=== PATIENT | male | born 1975 | race African-American/Black ===

== ENCOUNTER 2021-01-27 18:32 | Emergency (ER) | payer MEDICARE, MEDICAID ==
[~2021-01-27] VITALS: Ht 177.8 cm; Wt 61.0 kg
[~2021-01-27 18:32] MED LIST: AMLO-187 PO; APIX2.5T PO; CARV12.511 PO; HYDR100T24 PO; LEVE500T56 PO; SEVE800T9 PO
[2021-01-27 20:40] LABS: CALCIUM 7.6 mg/dL (8.5-10.1); CREATININE 15.1 mg/dL (0.7-1.3); GFR 4.2; POTASSIUM 5.1 mmol/L (3.5-5.1)
--- NOTE | 2021-01-27 21:01 | ED.ADGEN ---
Past Medical History Past Medical History: CHF, Hypertension, Renal Disease, Seizure, Other Additional Past Medical Histor: ESRD, DIALYSIS, OSTOMY Past Surgical History: No Surgical History Additional Past Surgical Histo: COLOSTOMY, L GREAT TOE AMPUTATION, cath R CHEST, FISTULA L ARM kidney peraza Smoking Status: Current Every Day Smoker Alcohol Use: None Drug Use: None General Adult EDM: Chief Complaint: HYPERKALEMIA HPI: HPI: Patient is a 45-year-old male with known end-stage renal disease who presents to the emergency room stating that he needs clearance to have his dialysis tomorrow. Patient states that he called the dialysis center today and they told him that they did not receive paperwork from the hospital stating that he needed dialysis. He is established at this dialysis center. He sees Dr. Redman. He has no complaints at this time. His last dialysis was yesterday here in the hospital. Review of Systems: Review of Systems: Complete ROS is negative unless otherwise documented in HPI Allergies: Allergies: Allergies Coded Allergies Type Severity Reaction Last Updated Verified No Known Drug Allergies 06/14/20 No Physical Exam: PE: General: Awake, alert, NAD. Well Nourished, well hydrated. Cooperative HEENT: Atraumatic, EOMI, PERRL, airway patent, moist oral mucosa Neck: Supple, trachea midline Respiratory: CTA bilaterally, normal effort, no wheezing/crackles CV: RRR, no murmur, cap refill <2 GI: Soft, nondistended, nontender, no masses MSK: No obvious deformities Skin: Warm, dry, intact Neuro: A&O x3, speech NL, sensory and motor grossly intact, no focal deficits Psych: Normal affect, normal mood, not suicidal or homicidal Current Patient Data: Labs: Laboratory Tests Test 01/27/21 20:26 Sodium Level 137 mmol/L (136-145) Potassium Level 5.1 mmol/L (3.5-5.1) Chloride Level 102 mmol/L (98-107) Carbon Dioxide Level 24 mmol/L (21-32) Anion Gap 11 (6-14) Blood Urea Nitrogen 61 mg/dL (8-26) H Creatinine 15.1 mg/dL (0.7-1.3) H Estimated GFR (Cockcroft-Gault) 4.2 Glucose Level 109 mg/dL (70-99) H Calcium Level 7.6 mg/dL (8.5-10.1) L Laboratory Tests 01/27/21 20:26 Vital Signs: Vital Signs Date Time Temp Pulse Resp B/P (MAP) Pulse Ox O2 Delivery O2 Flow Rate FiO2 01/27/21 21:05 72 196/97 (130) 98 Room Air 01/27/21 20:17 98.1 12 98.1 EKG: EKG: [] Heart Score: C/O Chest Pain: N/A Risk Factors: Risk Factors: DM, Current or recent (<one month) smoker, HTN, HLP, family history of CAD, obesity. Risk Scores: Score 0 - 3: 2.5% MACE over next 6 weeks - Discharge Home Score 4 - 6: 20.3% MACE over next 6 weeks - Admit for Clinical Observation Score 7 - 10: 72.7% MACE over next 6 weeks - Early Invasive Strategies Radiology/Procedures: Radiology/Procedures: [] Course & Med Decision Making: Course & Med Decision Making Pertinent Labs and Imaging studies reviewed. (See chart for details) Patient is a 45-year-old male who presents to the emergency room stating that he needs clearance to have dialysis done tomorrow. It is unclear at this time exactly what he is needing. BMP is stable. EKG is unchanged. I discussed the patient with Dr. Alvarado who will call the dialysis center in the morning. Patient's test results and vitals while in the ED were fully reviewed and discussed with the patient. Patient is stable and at this time does not need admission to the hospital. We have discussed strict return precautions and the importance of following up with their Primary Care Physician. Patient stated understanding and was given an opportunity to ask any questions. Patient is in agreement with plan. Dragon Disclaimer: Dragon Disclaimer: This electronic medical record was generated, in whole or in part, using a voice recognition dictation system. Departure Departure Impression: Primary Impression: Dialysis patient Disposition: HOME / SELF CARE / HOMELESS Condition: STABLE Referrals: LO MANNING MD (PCP) Patient Instructions: Dialysis LUCRECIA ROMANO MD Jan 27, 2021 21:01
[2021-01-27 21:05] VITALS: BP 196/97
--- NOTE | 2021-01-28 02:07 | EKG ---
[facility] [address] [place] [address] Test Date: 2021-01-27 Test Time: 20:11:09 Pat Name: MIKE CHOWDARY Department: Room: Gender: M [employer] Advisor: : 1975 Requested By: LUCRECIA ROMANO Order Number: [id number] Reading MD: Measurements Intervals [place] Rate: 74 P: 64 ND: 192 QRS: -17 QRSD: 86 T: 114 QT: 434 QTc: 482 Interpretive Statements SINUS RHYTHM LEFT ATRIAL ABNORMALITY LEFTWARD AXIS CONSIDER LEFT VENTRICULAR HYPERTROPHY ST & T ABNORMALITY, CONSIDER HIGH LATERAL ISCHEMIA OR LEFT VENTRICULAR STRAIN ABNORMAL ECG RI6.02 No previous ECG available for comparison
== END 2021-01-27 21:18 | disposition home or self-care (01) ==
LOC: ER 18:32
DX: Z49.31 Encounter for adequacy testing for hemodialysis (principal); I13.2 Hypertensive heart and chronic kidney disease with heart failure and with stage 5 chronic kidney disease, or end stage renal disease; N18.6 End stage renal disease; I50.9 Heart failure, unspecified; F17.200 Nicotine dependence, unspecified, uncomplicated; Z99.2 Dependence on renal dialysis
CPT/HCPCS: 36415; 80048; 93005; 99283; 99284

== ENCOUNTER 2021-01-31 18:40 | Inpatient (IN) | payer MEDICARE, MEDICAID ==
[~2021-01-31] VITALS: Ht 182.9 cm; Wt 61.3 kg
[2021-01-31 20:44] LABS: BILIRUBIN,URINE LARGE (NEG); CLARITY,URINE TURBID; COLOR,URINE RED; NITRITE,URINE POSITIVE (NEG); PROTEIN,URINE >=300 mg/dL (NEG-TRACE)
[2021-01-31 21:02] LABS: BACTERIA,URINE 0 /HPF (0-FEW); RBC,URINE FIELD OBSCURED /HPF (0-2)
[2021-01-31 21:05] LABS: BARBITURATES NEG (NEG); BENZODIAZEPINES NEG (NEG); CANNABINOIDS POS (NEG); COCAINE POS (NEG); METHADONE NEG (NEG); OPIATES NEG (NEG); PHENCYCLIDINE NEG (NEG)
[2021-01-31 21:08] LABS: AMPHETAMINE/METHAMPHETAMINE NEG (NEG)
[2021-01-31 21:53] LABS: BASO % 1 % (0-3); EOS # 0.3 x10^3/uL (0.0-0.7); EOS % 6 % (0-3); HEMATOCRIT 25.3 % (39.0-53.0); HEMOGLOBIN 8.3 g/dL (13.0-17.5); LYMPH # 1.3 x10^3/uL (1.0-4.8); LYMPH % 22 % (24-48); MEAN CORPUSCULAR HEMOGLOBIN 30 pg (25-35); MEAN CORPUSCULAR HGB CONC 33 g/dL (31-37); MEAN CORPUSCULAR VOLUME 93 fL (79-100); MONO % 17 % (0-9); NEUT # 3.2 x10^3/uL (1.8-7.7); NEUT % 55 % (31-73); PLATELET COUNT 160 x10^3/uL (140-400); RED BLOOD COUNT 2.73 x10^6/uL (4.30-5.70); RED CELL DISTRIBUTION WIDTH 15.9 % (11.5-14.5); WHITE BLOOD COUNT 5.8 x10^3/uL (4.0-11.0)
[2021-01-31 22:09] LABS: CALCIUM 7.1 mg/dL (8.5-10.1); CREATININE 15.2 mg/dL (0.7-1.3); GFR 4.2; POTASSIUM 5.4 mmol/L (3.5-5.1)
--- NOTE | 2021-01-31 22:14 | RAD ---
EXAM: AP View of the chest DATE: 01/31/2021 10:05 PM INDICATION: Reason: near syncope / Spl. Instructions: / History: COMPARISON: No Prior FINDINGS: Mild cardiomegaly. Right IJ vascular catheter tip projects over the distal SVC. Patchy opacities in the right infrahilar lung and medial right lung base likely atelectasis or develo ping consolidation. No pleural effusion or pneumothorax. IMPRESSION: Patchy opacities in the right infrahilar lung and medial right lung base likely atelectasis or develo ping consolidation. Electronically signed by: Kody Huntley MD (01/31/2021 10:12 PM) ROSEANNA
[2021-01-31 22:15] LABS: ALBUMIN 2.9 g/dL (3.4-5.0); ALBUMIN/GLOBULIN RATIO 0.7 (1.0-1.7); MAGNESIUM 2.3 mg/dL (1.8-2.4); TOTAL BILIRUBIN 0.3 mg/dL (0.2-1.0); TOTAL PROTEIN 7.2 g/dL (6.4-8.2)
--- NOTE | 2021-01-31 23:25 | PHYS DOC ---
Past Medical History Past Medical History: CHF, Hypertension, Renal Disease, Seizure, Other Additional Past Medical Histor: ESRD, DIALYSIS, OSTOMY Past Surgical History: No Surgical History Additional Past Surgical Histo: COLOSTOMY, L GREAT TOE AMPUTATION, cath R CHEST, FISTULA L ARM kidney peraza Smoking Status: Current Every Day Smoker Alcohol Use: None Drug Use: None General Adult EDM: Chief Complaint: BLOOD IN URINE HPI: HPI: 45-year-old male esrd male presents to the ED with complaints of blood in his urine. States he had dialysis ten years ago, then had a kidney transplant and was recently started on dialysis 2 months ago. Still makes urine. EMR was reviewed and patient had a CTA c/a/p in the past month. Review of Systems: Review of Systems: Constitutional: Denies fever or chills. [] Eyes: Denies change in visual acuity. [] HENT: Denies nasal congestion or sore throat. [] Respiratory: Denies cough or shortness of breath. [] Cardiovascular: Denies chest pain or edema. [] GI: Denies abdominal pain, nausea, vomiting, bloody stools or diarrhea. [] : Denies dysuria or increased urinary frequency Musculoskeletal: Denies back pain or joint pain CVA tenderness Integument: Denies rash or diaphoresis Neurologic: Denies headache, focal weakness or sensory changes. [] Endocrine: Denies polyuria or polydipsia. [] Lymphatic: Denies swollen glands. [] Psychiatric: Denies depression or anxiety. [] Heart Score: C/O Chest Pain: No Risk Factors: Risk Factors: DM, Current or recent (<one month) smoker, HTN, HLP, family history of CAD, obesity. Risk Scores: Score 0 - 3: 2.5% MACE over next 6 weeks - Discharge Home Score 4 - 6: 20.3% MACE over next 6 weeks - Admit for Clinical Observation Score 7 - 10: 72.7% MACE over next 6 weeks - Early Invasive Strategies Allergies: Allergies: Allergies Coded Allergies Type Severity Reaction Last Updated Verified No Known Drug Allergies 06/14/20 No Physical Exam: PE: Constitutional: Afebrile, sleeping in stretcher during ed presentation, no extremis HENT: Normocephalic, atraumatic, dry mucous membranes Eyes: EOMI, conjunctiva normal, no discharge. Neck: Normal range of motion, supple, Cardiovascular: S1/2 present, regular rhythm Lungs & Thorax: Speaking in full sentences, bilateral equal chest rise, no tachypnea or increased work of breathing Abdomen: soft, no tenderness, Skin: Warm, dry, no erythema, no rash. [] Back: No tenderness, no CVA tenderness. [] Extremities: No tenderness, no cyanosis, Neurologic: Alert and oriented X 3, no focal deficits noted. [] Psychologic: Affect normal, apathetic mood but rude with asking medical questions regarding cocaine use, "I only do marijuana, why you be so disrespectful?" Current Patient Data: Labs: Laboratory Tests Test 01/31/21 19:10 01/31/21 20:34 01/31/21 21:45 Urine Collection Type Unknown Urine Color Red Urine Clarity Turbid Urine pH 5.0 (<5.0-8.0) Urine Specific [place] >=1.030 (1.000-1.030) Urine Protein >=300 mg/dL (NEG-TRACE) Urine Glucose (UA) 250 mg/dL (NEG) Urine Ketones (Stick) >=80 mg/dL (NEG) Urine Blood Large (NEG) Urine Nitrite Positive (NEG) Urine Bilirubin Large (NEG) Urine Urobilinogen Dipstick 1.0 mg/dL (0.2 mg/dL) Urine Leukocyte Esterase Large (NEG) Urine RBC Field obscured /HPF (0-2) Urine WBC 1-4 /HPF (0-4) Urine Squamous Epithelial Cells Occ /LPF Urine Bacteria 0 /HPF (0-FEW) Urine Opiates Screen Neg (NEG) Urine Methadone Screen Neg (NEG) Urine Barbiturates Neg (NEG) Urine Phencyclidine Screen Neg (NEG) Urine Amphetamine/Methamphetamine Neg (NEG) Urine Benzodiazepines Screen Neg (NEG) Urine Cocaine Screen Pos (NEG) Urine Cannabinoids Screen Pos (NEG) Urine Ethyl Alcohol Neg (NEG) Sodium Level 139 mmol/L (136-145) Potassium Level 5.4 mmol/L (3.5-5.1) H Chloride Level 103 mmol/L (98-107) Carbon Dioxide Level 23 mmol/L (21-32) Anion Gap 13 (6-14) Blood Urea Nitrogen 67 mg/dL (8-26) H Creatinine 15.2 mg/dL (0.7-1.3) H Estimated GFR (Cockcroft-Gault) 4.2 BUN/Creatinine Ratio 4 (6-20) L Glucose Level 182 mg/dL (70-99) H Calcium Level 7.1 mg/dL (8.5-10.1) L Magnesium Level 2.3 mg/dL (1.8-2.4) Total Bilirubin 0.3 mg/dL (0.2-1.0) Aspartate Amino Transferase (AST) 30 U/L (15-37) Alanine Aminotransferase (ALT) 24 U/L (16-63) Alkaline Phosphatase 140 U/L (46-116) H Total Protein 7.2 g/dL (6.4-8.2) Albumin 2.9 g/dL (3.4-5.0) L Albumin/Globulin Ratio 0.7 (1.0-1.7) L White Blood Count 5.8 x10^3/uL (4.0-11.0) Red Blood Count 2.73 x10^6/uL (4.30-5.70) L Hemoglobin 8.3 g/dL (13.0-17.5) L Hematocrit 25.3 % (39.0-53.0) L Mean Corpuscular Volume 93 fL (79-100) Mean Corpuscular Hemoglobin 30 pg (25-35) Mean Corpuscular Hemoglobin Concent 33 g/dL (31-37) Red Cell Distribution Width 15.9 % (11.5-14.5) H Platelet Count 160 x10^3/uL (140-400) Neutrophils (%) (Auto) 55 % (31-73) Lymphocytes (%) (Auto) 22 % (24-48) L Monocytes (%) (Auto) 17 % (0-9) H Eosinophils (%) (Auto) 6 % (0-3) H Basophils (%) (Auto) 1 % (0-3) Neutrophils # (Auto) 3.2 x10^3/uL (1.8-7.7) Lymphocytes # (Auto) 1.3 x10^3/uL (1.0-4.8) Monocytes # (Auto) 1.0 x10^3/uL (0.0-1.1) Eosinophils # (Auto) 0.3 x10^3/uL (0.0-0.7) Basophils # (Auto) 0.0 x10^3/uL (0.0-0.2) Troponin I Quantitative 0.092 ng/mL (0.000-0.055) Laboratory Tests 01/31/21 21:45 Laboratory Tests 01/31/21 20:34 EKG: EKG: [] Radiology/Procedures: Radiology/Procedures: [] IMAGING REPORT Signed PATIENT: MIKE CHOWDARY ACCOUNT: [id number] : 1975 LOCATION: 2 [facility] AGE: 45 SEX: M EXAM STATUS: ADM IN ORD. PHYSICIAN: GINA BRASWELL MD REASON: hematuria, concern for stone vs renal/bladder mass PROCEDURE: CT ABDOMEN PELVIS WO/W PQRS Compliance Statement: One or more of the following individualized dose reduction techniques were utilized for this examination: 1. Automated exposure control 2. Adjustment of the mA and/or kV according to patient size 3. Use of iterative reconstruction technique CT ABDOMEN+PELVIS WO+W Clinical Indication: Reason: hematuria, concern for stone vs renal/bladder mass / Comparison: CTA chest abdomen and pelvis 01/16/2021 TECHNIQUE: Helical CT imaging of the abdomen and pelvis is performed before and after 75 cc of Omnipaque 350 IV contrast. Postcontrast imaging performed during arterial and portal venous and 10 minute delay phases. Findings: Contrast is seen in the kidneys on the precontrast images. Correlate for recent contrast administration. There are atherosclerotic arterial calcifications of the bilateral renal franchesca. A renal calculus is not identified. Small bilateral renal cysts do not require follow-up. The kidneys are atrophic. The enhancement pattern of the kidneys does not change on the sequential postcontrast images. On the 10 minute delay image, no excretion of contrast into the collecting system is identified. There is no hydronephrosis. No renal calculus is seen. There is cardiac enlargement. There is coronary artery disease. There is mild pericardial effusion. There are groundglass opacities in the bilateral lung bases. There is mild interlobular septal thickening. There is left ventricular hypertrophy. Liver, gallbladder, spleen, pancreas, and adrenal glands are normal. Atherosclerotic abdominal aorta, no aneurysm. No obvious abnormality of the stomach. No small bowel obstruction is identified. There is right lower abdomen ostomy. Distal colon suture line. There is left lower quadrant transplant kidney. There is mild pelvicaliectasis. Fluid in the collecting system is mildly hyperdense on the precontrast images which may be due to contrast. Mild enhancement of the transplant kidney on the portal venous phase images. There is mild urinary bladder wall thickening. No pelvic free fluid is identified. No acute bone abnormality. IMPRESSION: 1. There are groundglass opacities in the bilateral lung bases. Mild interlobular septal thickening. Cardiac enlargement. Correlate for mild CHF or volume overload. 2. Mild pericardial effusion. 3. [place] kidneys are atrophic and do not demonstrate dynamic contrast enhancement. On precontrast images there is already contrast enhancement of the kidneys. Correlate for recent IV contrast administration. On delay images there is no excretion of contrast. There is mild pelvicaliectasis of the left lower quadrant transplant kidney. No obstructing process is seen. 4. Mild urinary bladder wall thickening may be due to cystitis or chronic bladder outlet obstruction. Electronically signed by: Chad Burgess MD (02/01/2021 12:59 PM) [facility] DICTATED and SIGNED BY: CHAD BURGESS MD DATE: 02/01/21 [id number] IMAGING REPORT Signed PATIENT: MIKE CHOWDARY ACCOUNT: [id number] : 1975 LOCATION: ER AGE: 45 SEX: M EXAM STATUS: REG ER ORD. PHYSICIAN: JIM HARRIS DO REASON: near syncope PROCEDURE: PORTABLE CHEST 1V EXAM: AP View of the chest DATE: 01/31/2021 10:05 PM INDICATION: Reason: near syncope / Spl. Instructions: / History: COMPARISON: No Prior FINDINGS: Mild cardiomegaly. Right IJ vascular catheter tip projects over the distal SVC. Patchy opacities in the right infrahilar lung and medial right lung base likely atelectasis or developing consolidation. No pleural effusion or pneumothorax. IMPRESSION: Patchy opacities in the right infrahilar lung and medial right lung base likely atelectasis or developing consolidation. Electronically signed by: Kody Coburn MD (01/31/2021 10:12 PM) [facility] DICTATED and SIGNED BY: KODY COBURN MD DATE: 01/31/21 [id number] Course & Med Decision Making: Course & Med Decision Making Pertinent Labs and Imaging studies reviewed. (See chart for details) Concern for cocaine in the setting of a positive troponin, similar to baseline, despite patient denying any cocaine abuse. I have spoken with the patient and/or caregivers. I have explained the david jimenez's condition, diagnosis and treatment plan based on the information available to me at this time. I have answered the patient's and/or caregivers questions and answered any concerns. The patient and/or caregivers have as good an understanding of the patient's diagnosis, condition and treatment plan as can be expected at this point. The patient has been stabilized within the capability of the emergency department. The patient will be transported for further care and management or will be moved to an observation or inpatient service. I have communicated with the staff or medical practitioner taking over this patient's care. Armando Disclaimer: Armando Disclaimer: This electronic medical record was generated, in whole or in part, using a voice recognition dictation system. Departure Departure Impression: Primary Impression: NSTEMI (non-ST elevated myocardial infarction) Additional Impressions: UTI (urinary tract infection) Cocaine use Painless hematuria Disposition: ADMITTED INPATIENT Admitting Physician: JESUS (Dr. Zambrano) Condition: STABLE Referrals: LO MANNING MD (PCP) JIM HARRIS DO Jan 31, 2021 23:25
[2021-01-31] MEDS ORDERED: cefTRIAXone IV Push 1 GM VIAL. IVP ONE (23:30)
[2021-02-01 02:00] VITALS: BP 203/97
[2021-02-01 02:33] VITALS: BP 203/87
[2021-02-01] MEDS ORDERED: hydrALAZINE 20 MG/ML VIAL. IVP PRN (02:45)
[2021-02-01 03:07] VITALS: BP 183/82
[2021-02-01 07:00] VITALS: BP 197/112
--- NOTE | 2021-02-01 07:25 | PDOC1 ---
History and Physical Date of Admission Date of Admission DATE: 02/01/21 TIME: 07:25 Identification/Chief Complaint Chief Complaint Hematuria Source Source: Patient History of Present Illness History of Present Illness Mr Zee is a 45 yo M w/ PMHx HTN, seizures, L great toe amputation, s/p colostomy, smoker, ESRD s/p failed renal transplant now on HD TTS who presents to the emergency room c/o painless hematuria. He denies any chest pain or shortness of breath. He has not had any swelling. He has not taken his blood pressure medicine for some time or his seizure meds Blood Pressure 197/112. Labs with NA 139, K5.4, BUN 67, CR 15.2, glucose 182, albumin 2.9, initial troponin I 0.092-second 0.097 UDS positive for cocaine and cannabinoids UA protein greater than 300 blood large nitrite positive leukoesterase large CBC with WBC 5.8, Hb 8.3, platelets 160. He adamantly denies any cocaine use as he just smokes marijuana. He also smokes cigarettes. Chest radiograph with right basilar patchy infrahilar opacities. No abdominal imaging obtained in ED. EMR was reviewed and patient had a CTA c/a/p in the past month with no renal masses or stones noted. No EKG available but no abnormalities noted on telemetry strips. Admitted for further care Past Medical History Cardiovascular: CHF, HTN CENTRAL NERVOUS SYSTEM: Seizure Infectious disease: No pertinent hx Renal/: Chronic renal failure Past Surgical History Past Surgical History: Colectomy, Other Family History Family History: High Cholestrol, Hypertension Social History Smoke: 1 pack per day ALCOHOL: none Drugs: Marijuana Current Problem List Problem List Problems Medical Problems: (1) Cocaine use Status: Acute (2) NSTEMI (non-ST elevated myocardial infarction) Status: Acute (3) Painless hematuria Status: Acute (4) UTI (urinary tract infection) Status: Acute Current Medications Current Medications Current Medications Ceftriaxone Sodium (Rocephin) 1 gm 1X ONCE IVP Last administered on 01/31/21at 23:45; Start 01/31/21 at 23:30; Stop 01/31/21 at 23:31; Status DC Hydralazine HCl (Apresoline Inj) 10 mg PRN Q2HR PRN IVP ELEVATED BP, SEE COMMENTS; Start 02/01/21 at 02:45 Active Scripts Active Carvedilol (Carvedilol) 12.5 Mg Tablet 12.5 Mg PO BIDWMEALS 30 Days Eliquis (Apixaban) 2.5 Mg Tablet 1 Tab PO DAILY 30 Days Renvela (Sevelamer Carbonate) 800 Mg Tablet 1 Tab PO TID 30 Days Amlodipine Besylate 10 Mg Tablet 10 Mg PO DAILY 30 Days Hydralazine Hcl 100 Mg Tablet 1 Tab PO TID 30 Days Allergies Allergies: Coded Allergies: No Known Drug Allergies (Unverified , 06/14/20) ROS General: No: Chills, Night Sweats, Fatigue, Malaise, Appetite, Other PSYCHOLOGICAL ROS: No: Anxiety, Behavioral Disorder, Concentration difficultie, Decreased libido, Depression, Disorientation, Hallucinations, Hostility, Irritablity, Memory difficulties, Mood Swings, Obsessive thoughts, Physical abuse, Sexual abuse, Sleep disturbances, Suicidal ideation, Other Eyes: No Blurry vision, No Decreased vision, No Double vision, No Dry eyes, No Excessive tearing, No Eye Pain, No Itchy Eyes, No Loss of vision, No Photophobia, No Scotomata, No Uses contacts, No Uses glasses, No Other HEENT: No: Heacaches, Visual Changes, Hearing change, Nasal congestion, Nasal discharge, Oral lesions, Sinus pain, Sore Throat, Epistaxis, Sneezing, Snoring, Tinnitus, Vertigo, Vocal changes, Other ALLERGY AND IMMUNOLOGY: No: Hives, Insect Bite Sensitivity, Itchy/Watery Eyes, Nasal Congestion, Post Nasal Drip, Seasonal Allergies, Other Hematological and Lymphatic: No: Bleeding Problems, Blood Clots, Blood Transfusions, Brusing, Night Sweats, Pallor, Swollen Lymph Nodes, Other ENDOCRINE: No: Breast Changes, Galactorrhea, Hair Pattern Changes, Hot Flashes, Malaise/lethargy, Mood Swings, Palpitations, Polydipsia/polyuria, Skin Changes, Temperature Intolerance, Unexpected Weight Changes, Other Breast: No New/Changing Breast Lumps, No Nipple changes, No Nipple discharge, No Other Respiratory: No: Cough, Hemoptysis, Orthopnea, Pleuritic Pain, Shortness of breath, SOB with excertion, Sputum Changes, Stridor, Tachypnea, Wheezing, Other Cardiovascular: No Chest Pain, No Palpitations, No Orthopnea, No Paroxysmal Noc. Dyspnea, No Edema, No Lt Headedness, No Other Gastrointestinal: No Nausea, No Vomiting, No Abdominal Pain, No Diarrhea, No Constipation, No Melena, No Hematochezia, No Other Genitourinary: YES Hematuria; No Dysuria, No Frequency, No Incontinence, No Retention, No Discharge, No Urgency, No Pain, No Flank Pain, No Other, No , No , No , No , No , No , No Musculoskeletal: No Gait Disturbance, No Joint Pain, No Joint Stiffness, No Joint Swelling, No Muscle Pain, No Muscular Weakness, No Pain In:, No Swelling In:, No Other Neurological: No Behavorial Changes, No Bowel/Bladder ControlChng, No Confusion, No Dizziness, No Gait Disturbance, No Headaches, No Impaired Coord/balance, No Memory Loss, No Numbness/Tingling, No Seizures, No Speech Problems, No Tremors, No Visual Changes, No Weakness, No Other Skin: No Dry Skin, No Eczema, No Hair Changes, No Lumps, No Mole Changes, No Mottling, No Nail Changes, No Pruritus, No Rash, No Skin Lesion Changes, No Other, No Acne Physical Exam General: Alert, Oriented X3, Cooperative, No acute distress HEENT: Atraumatic, PERRLA, EOMI, Mucous membr. moist/pink Lungs: Clear to auscultation, Normal air movement Heart: S1S2, RRR, no thrills, murmurs (3/6 BENNIE) Abdomen: Normal bowel sounds, Soft, No tenderness, No hepatosplenomegaly, No masses, Other (Ostomy RLQ clean, dry intact) Rectal Exam: not examined Extremities: No clubbing, No cyanosis, No edema, Normal pulses, No tenderness/swelling Skin: No rashes, No breakdown, No significant lesion Neuro: Normal gait, Normal speech, Strength at 5/5 X4 ext, Normal tone, Sensation intact, Cranial nerves 3-12 NL, Reflexes 2+ Psych/Mental Status: Mental status NL, Mood NL Vitals Vitals Vital Signs Date Time Temp Pulse Resp B/P (MAP) Pulse Ox O2 Delivery O2 Flow Rate FiO2 02/01/21 03:07 71 183/82 (115) 02/01/21 02:16 Room Air 02/01/21 02:00 98.1 19 97 98.1 Labs Labs Laboratory Tests Test 01/31/21 19:10 01/31/21 20:34 01/31/21 21:45 02/01/21 04:48 Urine Collection Type Unknown Urine Color Red Urine Clarity Turbid Urine pH 5.0 (<5.0-8.0) Urine Specific [place] >=1.030 (1.000-1.030) Urine Protein >=300 mg/dL (NEG-TRACE) Urine Glucose (UA) 250 mg/dL (NEG) Urine Ketones (Stick) >=80 mg/dL (NEG) Urine Blood Large (NEG) Urine Nitrite Positive (NEG) Urine Bilirubin Large (NEG) Urine Urobilinogen Dipstick 1.0 mg/dL (0.2 mg/dL) Urine Leukocyte Esterase Large (NEG) Urine RBC Field obscured /HPF (0-2) Urine WBC 1-4 /HPF (0-4) Urine Squamous Epithelial Cells Occ /LPF Urine Bacteria 0 /HPF (0-FEW) Urine Opiates Screen Neg (NEG) Urine Methadone Screen Neg (NEG) Urine Barbiturates Neg (NEG) Urine Phencyclidine Screen Neg (NEG) Urine Amphetamine/Methamphetamine Neg (NEG) Urine Benzodiazepines Screen Neg (NEG) Urine Cocaine Screen Pos (NEG) Urine Cannabinoids Screen Pos (NEG) Urine Ethyl Alcohol Neg (NEG) Sodium Level 139 mmol/L (136-145) Potassium Level 5.4 mmol/L (3.5-5.1) Chloride Level 103 mmol/L (98-107) Carbon Dioxide Level 23 mmol/L (21-32) Anion Gap 13 (6-14) Blood Urea Nitrogen 67 mg/dL (8-26) Creatinine 15.2 mg/dL (0.7-1.3) Estimated GFR (Cockcroft-Gault) 4.2 BUN/Creatinine Ratio 4 (6-20) Glucose Level 182 mg/dL (70-99) Calcium Level 7.1 mg/dL (8.5-10.1) Magnesium Level 2.3 mg/dL (1.8-2.4) Total Bilirubin 0.3 mg/dL (0.2-1.0) Aspartate Amino Transf (AST/SGOT) 30 U/L (15-37) Alanine Aminotransferase (ALT/SGPT) 24 U/L (16-63) Alkaline Phosphatase 140 U/L (46-116) Total Protein 7.2 g/dL (6.4-8.2) Albumin 2.9 g/dL (3.4-5.0) Albumin/Globulin Ratio 0.7 (1.0-1.7) White Blood Count 5.8 x10^3/uL (4.0-11.0) Red Blood Count 2.73 x10^6/uL (4.30-5.70) Hemoglobin 8.3 g/dL (13.0-17.5) Hematocrit 25.3 % (39.0-53.0) Mean Corpuscular Volume 93 fL (79-100) Mean Corpuscular Hemoglobin 30 pg (25-35) Mean Corpuscular Hemoglobin Concent 33 g/dL (31-37) Red Cell Distribution Width 15.9 % (11.5-14.5) Platelet Count 160 x10^3/uL (140-400) Neutrophils (%) (Auto) 55 % (31-73) Lymphocytes (%) (Auto) 22 % (24-48) Monocytes (%) (Auto) 17 % (0-9) Eosinophils (%) (Auto) 6 % (0-3) Basophils (%) (Auto) 1 % (0-3) Neutrophils # (Auto) 3.2 x10^3/uL (1.8-7.7) Lymphocytes # (Auto) 1.3 x10^3/uL (1.0-4.8) Monocytes # (Auto) 1.0 x10^3/uL (0.0-1.1) Eosinophils # (Auto) 0.3 x10^3/uL (0.0-0.7) Basophils # (Auto) 0.0 x10^3/uL (0.0-0.2) Troponin I Quantitative 0.092 ng/mL (0.000-0.055) 0.097 ng/mL (0.000-0.055) Laboratory Tests Test 01/31/21 19:10 01/31/21 20:34 01/31/21 21:45 02/01/21 04:48 Urine Collection Type Unknown Urine Color Red Urine Clarity Turbid Urine pH 5.0 (<5.0-8.0) Urine Specific [place] >=1.030 (1.000-1.030) Urine Protein >=300 mg/dL (NEG-TRACE) Urine Glucose (UA) 250 mg/dL (NEG) Urine Ketones (Stick) >=80 mg/dL (NEG) Urine Blood Large (NEG) Urine Nitrite Positive (NEG) Urine Bilirubin Large (NEG) Urine Urobilinogen Dipstick 1.0 mg/dL (0.2 mg/dL) Urine Leukocyte Esterase Large (NEG) Urine RBC Field obscured /HPF (0-2) Urine WBC 1-4 /HPF (0-4) Urine Squamous Epithelial Cells Occ /LPF Urine Bacteria 0 /HPF (0-FEW) Urine Opiates Screen Neg (NEG) Urine Methadone Screen Neg (NEG) Urine Barbiturates Neg (NEG) Urine Phencyclidine Screen Neg (NEG) Urine Amphetamine/Methamphetamine Neg (NEG) Urine Benzodiazepines Screen Neg (NEG) Urine Cocaine Screen Pos (NEG) Urine Cannabinoids Screen Pos (NEG) Urine Ethyl Alcohol Neg (NEG) Sodium Level 139 mmol/L (136-145) Potassium Level 5.4 mmol/L (3.5-5.1) Chloride Level 103 mmol/L (98-107) Carbon Dioxide Level 23 mmol/L (21-32) Anion Gap 13 (6-14) Blood Urea Nitrogen 67 mg/dL (8-26) Creatinine 15.2 mg/dL (0.7-1.3) Estimated GFR (Cockcroft-Gault) 4.2 BUN/Creatinine Ratio 4 (6-20) Glucose Level 182 mg/dL (70-99) Calcium Level 7.1 mg/dL (8.5-10.1) Magnesium Level 2.3 mg/dL (1.8-2.4) Total Bilirubin 0.3 mg/dL (0.2-1.0) Aspartate Amino Transf (AST/SGOT) 30 U/L (15-37) Alanine Aminotransferase (ALT/SGPT) 24 U/L (16-63) Alkaline Phosphatase 140 U/L (46-116) Total Protein 7.2 g/dL (6.4-8.2) Albumin 2.9 g/dL (3.4-5.0) Albumin/Globulin Ratio 0.7 (1.0-1.7) White Blood Count 5.8 x10^3/uL (4.0-11.0) Red Blood Count 2.73 x10^6/uL (4.30-5.70) Hemoglobin 8.3 g/dL (13.0-17.5) Hematocrit 25.3 % (39.0-53.0) Mean Corpuscular Volume 93 fL (79-100) Mean Corpuscular Hemoglobin 30 pg (25-35) Mean Corpuscular Hemoglobin Concent 33 g/dL (31-37) Red Cell Distribution Width 15.9 % (11.5-14.5) Platelet Count 160 x10^3/uL (140-400) Neutrophils (%) (Auto) 55 % (31-73) Lymphocytes (%) (Auto) 22 % (24-48) Monocytes (%) (Auto) 17 % (0-9) Eosinophils (%) (Auto) 6 % (0-3) Basophils (%) (Auto) 1 % (0-3) Neutrophils # (Auto) 3.2 x10^3/uL (1.8-7.7) Lymphocytes # (Auto) 1.3 x10^3/uL (1.0-4.8) Monocytes # (Auto) 1.0 x10^3/uL (0.0-1.1) Eosinophils # (Auto) 0.3 x10^3/uL (0.0-0.7) Basophils # (Auto) 0.0 x10^3/uL (0.0-0.2) Troponin I Quantitative 0.092 ng/mL (0.000-0.055) 0.097 ng/mL (0.000-0.055) Images Images Chest radiograph: Mild cardiomegaly. Right IJ vascular catheter tip projects over the distal SVC. Patchy opacities in the right infrahilar lung and medial right lung base likely atelectasis or developing consolidation. No pleural effusion or pneumothorax. IMPRESSION: Patchy opacities in the right infrahilar lung and medial right lung base likely atelectasis or developing consolidation. VTE Prophylaxis Ordered VTE Prophylaxis Devices: Contraindicated VTE Pharmacological Prophylaxi: Yes Assessment/Plan Assessment/Plan A/P: Hematuria - painless, new. Possibly cocaine induced AIN. Will repeat CT for assessment of renal source. Treat empirically for UTI in male given abnormal UA, hematuria and prior bladder abnormalities on CT HyperKalemia - with EKG no changes. Needs dialysis HTN urgency - Restart home meds. avoid cocaine, cont home meds needs outpatient follow up for outpatient echo. ESRD - TTS; has been on dialysis since May 2020 after failed renal transplant Failed Renal Transplant - no longer on immunosuppressants Hx of Seizures - not having seizures Elevated troponin - likely due to demand ischemia. trended down Systolic heart murmur - will obtain echo outpatient, patient wishes not to have further workup inpatient Cocaine positive UDS - patient denies, states he only smokes and smokes marijuana. Carvedilol and cocaine use disorder have been shown to be safe and will continue carvedilol PVD s/p L great toe amputation s/p colostomy Smoker - counseled on cessation FEN - Renal diet PPX - SCDs FULL CODE DIspo - inpatient Justifications for Admission Other Justification GINA BRASWELL MD Feb 01, 2021 07:25
[2021-02-01] MEDS ORDERED: CARVEDILOL 12.5 MG TABLET. PO SCH (10:45)
--- NOTE | 2021-02-01 10:56 | NUR ---
PER DR PHU PIERRE TO GIVE COREG.
[2021-02-01 11:00] VITALS: BP 199/93
--- NOTE | 2021-02-01 11:25 | NUR ---
PAGED DR KRUSE AT [phone] TO SEE IF HE'S OK WITH PT GOING FOR CT ABD/PELVIS W/WO CONTRAST. DR KRUSE CALLED BACK AT [phone] AND GAVE PERMISSION.
--- NOTE | 2021-02-01 11:45 | NUR ---
PER FACILITIES COORDINATOR PT REFUSED LAB DRAW FOR TROPONIN.
[2021-02-01] MEDS ORDERED: ALBUMIN HUMAN 25% 200 ML IV PRN (12:00)
[2021-02-01] MEDS ORDERED: ACETAMINOPHEN 500 MG TABLET PO PRN (12:00)
[2021-02-01] MEDS ORDERED: diphenhydrAMINE 50 MG/ML VIAL IV PRN ×2 (12:00)
[2021-02-01] MEDS ORDERED: cloNIDine HCL 0.1 MG TABLET PO PRN (12:00)
[2021-02-01] MEDS ORDERED: IV NORMAL SALINE 1000ML BAG 1,000 ML IV PRN ×2 (12:00)
[2021-02-01] MEDS ORDERED: DIALYSIS PATIENT. MC PRN ×2 (12:00)
[2021-02-01] MEDS ORDERED: SEVELAMER CARBONATE 800 MG TABLET. PO SCH (12:00)
--- NOTE | 2021-02-01 13:01 | PDOC2 ---
CONSULT Date of Consult Date of Consult DATE: 02/01/21 TIME: 12:53 Reason for Consult Reason for Consult: ESRD, HEMATURIA Referring Physician Referring Physician: MICHAELLE Identification/Chief Complaint Chief Complaint PAINLESS HEMATURIA Source Source: Chart review, Patient History of Present Illness Reason for Visit: THIS IS A 45 YR OLD WITH HX OF ESRD. HAD RENAL TX BUT LOST IT ABOUT A YEAR AGO AND HAS BEEN ON HD. HAS NON COMPLIANCE WITH HIS MEDS. PER PT DUE TO LACK OF FUNDS. ALSO HAS NON COMPLIANCE WITH HIS TX AND PER PT THIS IS DUE TO TRANSPORTATION ISSUES. ADMITTED WITH PAINLESS HEMATURIA. UNDERGOING CT IMAGING TODAY. HAD ABD/PELVIS CT IMAGING DONE LAST MONTH WHICH NEG FOR ACUTE FINDINGS. LABS ARE C/W ESRD. HIS BP IS EXCESSIVE ELEVATED. UDS NOTABLE FOR CANNABIS AND COCAINE Past Medical History Past Medical History HX OF FAILED CADAVERIC RENAL TX ABOUT A YEAR AGO, ANOTHER TX WORKUP DENIED DUE TO NON COMPLIANCE, POLYSUBSTANCE DRUG USE Cardiovascular: CHF, HTN CENTRAL NERVOUS SYSTEM: Seizure Heme/Onc: Anemia NOS Infectious disease: No pertinent hx Renal/: Chronic renal failure Endocrine: Hyperparathyroidism Past Surgical History Past Surgical History RENAL TX-FAILED, HX OF TDC. HX OF FAILED LEFT ARM AVF AND FAILED LEFT ARM AVG, HX OF LEFT ILEOSTOMY AFTER COLECTOMY Past Surgical History: Colectomy, Other Family History Family History: High Cholestrol, Hypertension Social History 1 pack per day ALCOHOL: none Drugs: Cocaine, Marijuana Current Problem List Problem List Problems Medical Problems: (1) Cocaine use Status: Acute (2) NSTEMI (non-ST elevated myocardial infarction) Status: Acute (3) Painless hematuria Status: Acute (4) UTI (urinary tract infection) Status: Acute Current Medications Current Medications Current Medications Ceftriaxone Sodium (Rocephin) 1 gm 1X ONCE IVP Last administered on 01/31/21at 23:45; Start 01/31/21 at 23:30; Stop 01/31/21 at 23:31; Status DC Hydralazine HCl (Apresoline Inj) 10 mg PRN Q2HR PRN IVP ELEVATED BP, SEE COMMENTS; Start 02/01/21 at 02:45 Amlodipine Besylate (Norvasc) 10 mg DAILY PO ; Start 02/01/21 at 11:00 Carvedilol (Coreg) 12.5 mg BIDWMEALS PO Last administered on 02/01/21at 10:57; Start 02/01/21 at 10:45 Sevelamer Carbonate (Renvela) 800 mg TIDWMEALS PO ; Start 02/01/21 at 12:00 Hydralazine HCl (Apresoline) 100 mg TID PO ; Start 02/01/21 at 14:00 Sodium Chloride 1,000 ml @ 1,000 mls/hr Q1H PRN IV hypotension; Start 02/01/21 at 12:00; Stop 02/01/21 at 17:59 Albumin Human 200 ml @ 200 mls/hr 1X PRN PRN IV Hypotension; Start 02/01/21 at 12:00; Stop 02/01/21 at 17:59 Acetaminophen (Tylenol) 500 mg 1X PRN PRN PO MILD PAIN / TEMP > 100.3'F; Start 02/01/21 at 12:00; Stop 02/02/21 at 11:59 Diphenhydramine HCl (Benadryl) 25 mg 1X PRN PRN IV ITCHING; Start 02/01/21 at 12:00; Stop 02/02/21 at 11:59 Diphenhydramine HCl (Benadryl) 25 mg 1X PRN PRN IV ITCHING; Start 02/01/21 at 12:00; Stop 02/02/21 at 11:59 Clonidine HCl (Catapres) 0.1 mg 1X PRN PRN PO SBP > 180; Start 02/01/21 at 12:00; Stop 02/02/21 at 11:59 Sodium Chloride 1,000 ml @ 400 mls/hr Q2H30M PRN IV PATENCY; Start 02/01/21 at 12:00; Stop 02/01/21 at 23:59 Info (PHARMACY MONITORING -- do not chart) 1 each PRN DAILY PRN MC SEE COMMENTS; Start 02/01/21 at 12:00; Status UNV Info (PHARMACY MONITORING -- do not chart) 1 each PRN DAILY PRN MC SEE COMMENTS; Start 02/01/21 at 12:00 Active Scripts Active Carvedilol (Carvedilol) 12.5 Mg Tablet 12.5 Mg PO BIDWMEALS 30 Days Eliquis (Apixaban) 2.5 Mg Tablet 1 Tab PO DAILY 30 Days Renvela (Sevelamer Carbonate) 800 Mg Tablet 1 Tab PO TID 30 Days Amlodipine Besylate 10 Mg Tablet 10 Mg PO DAILY 30 Days Hydralazine Hcl 100 Mg Tablet 1 Tab PO TID 30 Days Allergies Allergies: Coded Allergies: No Known Drug Allergies (Unverified , 06/14/20) ROS General: YES: Fatigue, Malaise PSYCHOLOGICAL ROS: YES: Depression Eyes: Yes Decreased vision HEENT: YES: Heacaches Respiratory: YES: Cough Genitourinary: YES Hematuria, YES Other (ANURIA) Musculoskeletal: Yes Muscular Weakness Skin: Yes Dry Skin Physical Exam Physical Exam RIGHT CHEST WALL TDC. LEFT ARM AV ACCESS WITH NO THRILL OR BRUIT General: Alert, Oriented X3, Cooperative, No acute distress HEENT: Atraumatic Lungs: Clear to auscultation Heart: Regular rate Abdomen: Normal bowel sounds, Soft, No tenderness Skin: No breakdown Neuro: Normal speech Psych/Mental Status: Mental status NL, Mood NL MUSCULOSKELETAL: No joint tenderness, No deformity Vitals VITALS Vital Signs Date Time Temp Pulse Resp B/P (MAP) Pulse Ox O2 Delivery O2 Flow Rate FiO2 02/01/21 11:00 98.1 74 19 199/93 (128) 98 Room Air 98.1 Labs Labs Laboratory Tests Test 01/31/21 19:10 01/31/21 20:34 01/31/21 21:45 02/01/21 04:48 Urine Collection Type Unknown Urine Color Red Urine Clarity Turbid Urine pH 5.0 (<5.0-8.0) Urine Specific [place] >=1.030 (1.000-1.030) Urine Protein >=300 mg/dL (NEG-TRACE) Urine Glucose (UA) 250 mg/dL (NEG) Urine Ketones (Stick) >=80 mg/dL (NEG) Urine Blood Large (NEG) Urine Nitrite Positive (NEG) Urine Bilirubin Large (NEG) Urine Urobilinogen Dipstick 1.0 mg/dL (0.2 mg/dL) Urine Leukocyte Esterase Large (NEG) Urine RBC Field obscured /HPF (0-2) Urine WBC 1-4 /HPF (0-4) Urine Squamous Epithelial Cells Occ /LPF Urine Bacteria 0 /HPF (0-FEW) Urine Opiates Screen Neg (NEG) Urine Methadone Screen Neg (NEG) Urine Barbiturates Neg (NEG) Urine Phencyclidine Screen Neg (NEG) Urine Amphetamine/Methamphetamine Neg (NEG) Urine Benzodiazepines Screen Neg (NEG) Urine Cocaine Screen Pos (NEG) Urine Cannabinoids Screen Pos (NEG) Urine Ethyl Alcohol Neg (NEG) Sodium Level 139 mmol/L (136-145) Potassium Level 5.4 mmol/L (3.5-5.1) Chloride Level 103 mmol/L (98-107) Carbon Dioxide Level 23 mmol/L (21-32) Anion Gap 13 (6-14) Blood Urea Nitrogen 67 mg/dL (8-26) Creatinine 15.2 mg/dL (0.7-1.3) Estimated GFR (Cockcroft-Gault) 4.2 BUN/Creatinine Ratio 4 (6-20) Glucose Level 182 mg/dL (70-99) Calcium Level 7.1 mg/dL (8.5-10.1) Magnesium Level 2.3 mg/dL (1.8-2.4) Total Bilirubin 0.3 mg/dL (0.2-1.0) Aspartate Amino Transf (AST/SGOT) 30 U/L (15-37) Alanine Aminotransferase (ALT/SGPT) 24 U/L (16-63) Alkaline Phosphatase 140 U/L (46-116) Total Protein 7.2 g/dL (6.4-8.2) Albumin 2.9 g/dL (3.4-5.0) Albumin/Globulin Ratio 0.7 (1.0-1.7) White Blood Count 5.8 x10^3/uL (4.0-11.0) Red Blood Count 2.73 x10^6/uL (4.30-5.70) Hemoglobin 8.3 g/dL (13.0-17.5) Hematocrit 25.3 % (39.0-53.0) Mean Corpuscular Volume 93 fL (79-100) Mean Corpuscular Hemoglobin 30 pg (25-35) Mean Corpuscular Hemoglobin Concent 33 g/dL (31-37) Red Cell Distribution Width 15.9 % (11.5-14.5) Platelet Count 160 x10^3/uL (140-400) Neutrophils (%) (Auto) 55 % (31-73) Lymphocytes (%) (Auto) 22 % (24-48) Monocytes (%) (Auto) 17 % (0-9) Eosinophils (%) (Auto) 6 % (0-3) Basophils (%) (Auto) 1 % (0-3) Neutrophils # (Auto) 3.2 x10^3/uL (1.8-7.7) Lymphocytes # (Auto) 1.3 x10^3/uL (1.0-4.8) Monocytes # (Auto) 1.0 x10^3/uL (0.0-1.1) Eosinophils # (Auto) 0.3 x10^3/uL (0.0-0.7) Basophils # (Auto) 0.0 x10^3/uL (0.0-0.2) Troponin I Quantitative 0.092 ng/mL (0.000-0.055) 0.097 ng/mL (0.000-0.055) Laboratory Tests Test 01/31/21 19:10 01/31/21 20:34 01/31/21 21:45 02/01/21 04:48 Urine Collection Type Unknown Urine Color Red Urine Clarity Turbid Urine pH 5.0 (<5.0-8.0) Urine Specific [place] >=1.030 (1.000-1.030) Urine Protein >=300 mg/dL (NEG-TRACE) Urine Glucose (UA) 250 mg/dL (NEG) Urine Ketones (Stick) >=80 mg/dL (NEG) Urine Blood Large (NEG) Urine Nitrite Positive (NEG) Urine Bilirubin Large (NEG) Urine Urobilinogen Dipstick 1.0 mg/dL (0.2 mg/dL) Urine Leukocyte Esterase Large (NEG) Urine RBC Field obscured /HPF (0-2) Urine WBC 1-4 /HPF (0-4) Urine Squamous Epithelial Cells Occ /LPF Urine Bacteria 0 /HPF (0-FEW) Urine Opiates Screen Neg (NEG) Urine Methadone Screen Neg (NEG) Urine Barbiturates Neg (NEG) Urine Phencyclidine Screen Neg (NEG) Urine Amphetamine/Methamphetamine Neg (NEG) Urine Benzodiazepines Screen Neg (NEG) Urine Cocaine Screen Pos (NEG) Urine Cannabinoids Screen Pos (NEG) Urine Ethyl Alcohol Neg (NEG) Sodium Level 139 mmol/L (136-145) Potassium Level 5.4 mmol/L (3.5-5.1) Chloride Level 103 mmol/L (98-107) Carbon Dioxide Level 23 mmol/L (21-32) Anion Gap 13 (6-14) Blood Urea Nitrogen 67 mg/dL (8-26) Creatinine 15.2 mg/dL (0.7-1.3) Estimated GFR (Cockcroft-Gault) 4.2 BUN/Creatinine Ratio 4 (6-20) Glucose Level 182 mg/dL (70-99) Calcium Level 7.1 mg/dL (8.5-10.1) Magnesium Level 2.3 mg/dL (1.8-2.4) Total Bilirubin 0.3 mg/dL (0.2-1.0) Aspartate Amino Transf (AST/SGOT) 30 U/L (15-37) Alanine Aminotransferase (ALT/SGPT) 24 U/L (16-63) Alkaline Phosphatase 140 U/L (46-116) Total Protein 7.2 g/dL (6.4-8.2) Albumin 2.9 g/dL (3.4-5.0) Albumin/Globulin Ratio 0.7 (1.0-1.7) White Blood Count 5.8 x10^3/uL (4.0-11.0) Red Blood Count 2.73 x10^6/uL (4.30-5.70) Hemoglobin 8.3 g/dL (13.0-17.5) Hematocrit 25.3 % (39.0-53.0) Mean Corpuscular Volume 93 fL (79-100) Mean Corpuscular Hemoglobin 30 pg (25-35) Mean Corpuscular Hemoglobin Concent 33 g/dL (31-37) Red Cell Distribution Width 15.9 % (11.5-14.5) Platelet Count 160 x10^3/uL (140-400) Neutrophils (%) (Auto) 55 % (31-73) Lymphocytes (%) (Auto) 22 % (24-48) Monocytes (%) (Auto) 17 % (0-9) Eosinophils (%) (Auto) 6 % (0-3) Basophils (%) (Auto) 1 % (0-3) Neutrophils # (Auto) 3.2 x10^3/uL (1.8-7.7) Lymphocytes # (Auto) 1.3 x10^3/uL (1.0-4.8) Monocytes # (Auto) 1.0 x10^3/uL (0.0-1.1) Eosinophils # (Auto) 0.3 x10^3/uL (0.0-0.7) Basophils # (Auto) 0.0 x10^3/uL (0.0-0.2) Troponin I Quantitative 0.092 ng/mL (0.000-0.055) 0.097 ng/mL (0.000-0.055) Assessment/Plan Assessment/Plan IMP HEMATURIA MALIGNANT HTN NON COMPLIANCE ANEMIA ESRD HX OF FAILED RENAL TX HX OF COLECTOMY AND OSTOMY HX OF SEIZURES PAD POLYSUBSTANCE DRUG USE PLAN HD TODAY ENC MED COMPLIANCE ENC HD COMPLIANCE-SKIPPED HIS LAST TX START ROCK ONCE HTN IS BETTER CONTROLLED ENC ABSTINENCE FROM DRUG USE WILL FOLLOW CODY KRUSE MD Feb 01, 2021 13:01
--- NOTE | 2021-02-01 13:02 | RAD ---
PQRS Compliance Statement: One or more of the following individualized dose reduction techniques were utilized for this examinat ion: 1. Automated exposure control 2. Adjustment of the mA and/or kV according to patient size 3. Use of iterative reconstruction technique CT ABDOMEN+PELVIS WO+W Clinical Indication: Reason: hematuria, concern for stone vs renal/bladder mass / Comparison: CTA chest abdomen and pelvis 01/16/2021 TECHNIQUE: Helical CT imaging of the abdomen and pelvis is performed before and after 75 cc of Omnipa que 350 IV contrast. Postcontrast imaging performed during arterial and portal venous and 10 minute d elay phases. Findings: Contrast is seen in the kidneys on the precontrast images. Correlate for recent contrast administrati on. There are atherosclerotic arterial calcifications of the bilateral renal franchesca. A renal calculus i s not identified. Small bilateral renal cysts do not require follow-up. The kidneys are atrophic. The enhancement pattern of the kidneys does not change on the sequential postcontrast images. On the 10 minute delay image, no excretion of contrast into the collecting system is identified. There is no hy dronephrosis. No renal calculus is seen. There is cardiac enlargement. There is coronary artery disease. There is mild pericardial effusion. T here are groundglass opacities in the bilateral lung bases. There is mild interlobular septal thicken ing. There is left ventricular hypertrophy. Liver, gallbladder, spleen, pancreas, and adrenal glands are normal. Atherosclerotic abdominal aorta, no aneurysm. No obvious abnormality of the stomach. No small bowel obstruction is identified. There is right lower abdomen ostomy. Distal colon suture line. There is left lower quadrant transplant kidney. There is mild pelvicaliectasis. Fluid in the collecti ng system is mildly hyperdense on the precontrast images which may be due to contrast. Mild enhanceme nt of the transplant kidney on the portal venous phase images. There is mild urinary bladder wall thickening. No pelvic free fluid is identified. No acute bone abnormality. IMPRESSION: 1. There are groundglass opacities in the bilateral lung bases. Mild interlobular septal thickening. Cardiac enlargement. Correlate for mild CHF or volume overload. 2. Mild pericardial effusion. 3. [place] kidneys are atrophic and do not demonstrate dynamic contrast enhancement. On precontrast i mages there is already contrast enhancement of the kidneys. Correlate for recent IV contrast administ ration. On delay images there is no excretion of contrast. There is mild pelvicaliectasis of the left lower quadrant transplant kidney. No obstructing process is seen. 4. Mild urinary bladder wall thickening may be due to cystitis or chronic bladder outlet obstruction . Electronically signed by: Chad Burgess MD (02/01/2021 12:59 PM) [facility]
[2021-02-01] MEDS ORDERED: IOHEXOL 300 MG/ML 100ML VIAL. IV ONE (13:30)
[2021-02-01] MEDS ORDERED: CONTRAST GIVEN. MC PRN (13:30)
[2021-02-01 16:06] VITALS: BP 210/86
--- NOTE | 2021-02-01 16:53 | NUR ---
PT CAME OUT INTO THE HALLWAY WITHOUT A MASK. PT WAS ASKED TO PUT A MASK ON. PT REFUSED. PT ORDERED CHICKEN STRIPS, FRIES, [employer], PIZZA, BAKED POTATO, AND CAKE. PT WAS TOLD HE COULDN'T HAVE ALL THAT FOOD DUE TO RENAL DIET ORDERED. PT ASKED TO BE TAKEN TO THE VENDING MACHINE. JUANJOSE RN, WALKED PT TO VENDING MACHINE WHERE HE REPORTED "YOUR VENDING MACHINES SUCK". PT SAID HE WANTED TO LEAVE. AMA PAPERWORK TAKEN TO PT'S ROOM. PT WAS GETTING DRESSED. I EDUCATED PT ON RISKS OF LEAVING AMA, REMINDING HIM OF HIS ELEVATED BP. "BITCH, DON'T TALK TO ME UNLESS YOU'RE GOING TO TALK TO ME ABOUT FOOD. MY BP IS ALWAYS HIGH". I TOLD HIM IT WAS MY RESPONSIBILITY TO EDUCATE. HE SAID, "SHUT THE FUCK UP AND TAKE OUT THIS IV". THIS RN TOOK OUT THE IV CATHETER AND LAID IT ON HIS BED BECAUSE HE WAS STANDING TRYING TO PUT HIS PANTS ON AT THE SAME TIME. PT SAID, "DAMN, YOU JUST GONNA THROW A NEEDLE ON MY BED"? THIS RN EXPLAINED THAT THERE WAS NO NEEDLE, JUST A PLASTIC TUBE. THIS RN TOUCHED THE CATHETER TO MY FINGER AND HIS SHIRT TO SHOW HIM IT WAS A TUBE. PT SAID, "NOW YOU GOT BLOOD ON MY POLO". PT REFUSED TO SIGN AMA FORM. THIS RN RETURNED TO NURSE'S STATION TO CALL [employer]. PT FOLLOWED TO THE NURSE'S STATION. WHEN HE HEARD WHAT ADDRESS WAS BEING GIVEN TO [employer], HE SAID, "I DON'T LIVE THERE". I EXPLAINED TO HIM THAT WAS THE ADDRESS ON HIS REGISTRATION FORM AND THAT'S WHERE THE [employer] WOULD BE TAKING HIM. PT SAID, "I JUST LIVE ACROSS [address]. I'LL WALK HOME". SECURITY WAS CALLED TO ESCORT PT OUT OF THE BUILDING. Addendum: 02/01/21 at 1843 by JOVON ANDERSON RN RN IV REMOVED FROM RT HAND.
--- NOTE | 2021-02-02 08:20 | PDOC3 ---
Discharge Summary Visit Information Date of Admission: Jan 31, 2021 Date of Discharge: Feb 01, 2021 Admitting Diagnosis: Hematuria Final Diagnosis Problems Medical Problems: (1) Cocaine use Status: Acute (2) NSTEMI (non-ST elevated myocardial infarction) Status: Acute (3) Painless hematuria Status: Acute (4) UTI (urinary tract infection) Status: Acute Brief Hospital Course Allergies Allergies Coded Allergies Type Severity Reaction Last Updated Verified No Known Drug Allergies 06/14/20 No Vital Signs Vital Signs Date Time Temp Pulse Resp B/P (MAP) Pulse Ox O2 Delivery O2 Flow Rate FiO2 02/01/21 16:06 210/86 02/01/21 14:04 67 02/01/21 11:00 98.1 19 98 Room Air 98.1 Lab Results Laboratory Tests Test 01/31/21 19:10 01/31/21 20:34 01/31/21 21:45 02/01/21 04:48 Urine Collection Type Unknown Urine Color Red Urine Clarity Turbid Urine pH 5.0 (<5.0-8.0) Urine Specific [place] >=1.030 (1.000-1.030) Urine Protein >=300 mg/dL (NEG-TRACE) Urine Glucose (UA) 250 mg/dL (NEG) Urine Ketones (Stick) >=80 mg/dL (NEG) Urine Blood Large (NEG) Urine Nitrite Positive (NEG) Urine Bilirubin Large (NEG) Urine Urobilinogen Dipstick 1.0 mg/dL (0.2 mg/dL) Urine Leukocyte Esterase Large (NEG) Urine RBC Field obscured /HPF (0-2) Urine WBC 1-4 /HPF (0-4) Urine Squamous Epithelial Cells Occ /LPF Urine Bacteria 0 /HPF (0-FEW) Urine Opiates Screen Neg (NEG) Urine Methadone Screen Neg (NEG) Urine Barbiturates Neg (NEG) Urine Phencyclidine Screen Neg (NEG) Urine Amphetamine/Methamphetamine Neg (NEG) Urine Benzodiazepines Screen Neg (NEG) Urine Cocaine Screen Pos (NEG) Urine Cannabinoids Screen Pos (NEG) Urine Ethyl Alcohol Neg (NEG) Sodium Level 139 mmol/L (136-145) Potassium Level 5.4 mmol/L (3.5-5.1) Chloride Level 103 mmol/L (98-107) Carbon Dioxide Level 23 mmol/L (21-32) Anion Gap 13 (6-14) Blood Urea Nitrogen 67 mg/dL (8-26) Creatinine 15.2 mg/dL (0.7-1.3) Estimated GFR (Cockcroft-Gault) 4.2 BUN/Creatinine Ratio 4 (6-20) Glucose Level 182 mg/dL (70-99) Calcium Level 7.1 mg/dL (8.5-10.1) Magnesium Level 2.3 mg/dL (1.8-2.4) Total Bilirubin 0.3 mg/dL (0.2-1.0) Aspartate Amino Transf (AST/SGOT) 30 U/L (15-37) Alanine Aminotransferase (ALT/SGPT) 24 U/L (16-63) Alkaline Phosphatase 140 U/L (46-116) Total Protein 7.2 g/dL (6.4-8.2) Albumin 2.9 g/dL (3.4-5.0) Albumin/Globulin Ratio 0.7 (1.0-1.7) White Blood Count 5.8 x10^3/uL (4.0-11.0) Red Blood Count 2.73 x10^6/uL (4.30-5.70) Hemoglobin 8.3 g/dL (13.0-17.5) Hematocrit 25.3 % (39.0-53.0) Mean Corpuscular Volume 93 fL (79-100) Mean Corpuscular Hemoglobin 30 pg (25-35) Mean Corpuscular Hemoglobin Concent 33 g/dL (31-37) Red Cell Distribution Width 15.9 % (11.5-14.5) Platelet Count 160 x10^3/uL (140-400) Neutrophils (%) (Auto) 55 % (31-73) Lymphocytes (%) (Auto) 22 % (24-48) Monocytes (%) (Auto) 17 % (0-9) Eosinophils (%) (Auto) 6 % (0-3) Basophils (%) (Auto) 1 % (0-3) Neutrophils # (Auto) 3.2 x10^3/uL (1.8-7.7) Lymphocytes # (Auto) 1.3 x10^3/uL (1.0-4.8) Monocytes # (Auto) 1.0 x10^3/uL (0.0-1.1) Eosinophils # (Auto) 0.3 x10^3/uL (0.0-0.7) Basophils # (Auto) 0.0 x10^3/uL (0.0-0.2) Troponin I Quantitative 0.092 ng/mL (0.000-0.055) 0.097 ng/mL (0.000-0.055) Test 02/01/21 15:07 Troponin I Quantitative 0.100 ng/mL (0.000-0.055) Laboratory Tests Test 02/01/21 15:07 Troponin I Quantitative 0.100 ng/mL (0.000-0.055) Brief Hospital Course Mr Zee is a 45 yo M w/ PMHx HTN, seizures, L great toe amputation, s/p colostomy, smoker, ESRD s/p failed renal transplant now on HD TTS who presents to the emergency room c/o painless hematuria. He denies any chest pain or shortness of breath. He has not had any swelling. He has not taken his blood pressure medicine for some time or his seizure meds Blood Pressure 197/112. Labs with NA 139, K5.4, BUN 67, CR 15.2, glucose 182, albumin 2.9, initial troponin I 0.092-second 0.097 UDS positive for cocaine and cannabinoids UA protein greater than 300 blood large nitrite positive leukoesterase large CBC with WBC 5.8, Hb 8.3, platelets 160. He adamantly denies any cocaine use as he just smokes marijuana. He also smokes cigarettes. Chest radiograph with right basilar patchy infrahilar opacities. No abdominal imaging obtained in ED. EMR was reviewed and patient had a CTA c/a/p in the past month with no renal masses or stones noted. No EKG available but no abnormalities noted on telemetry strips. Admitted for further care Nephrology consulted for dialysis which he underwent in the hospital. He had missed his last outpatient dialysis session. CT abdomen/pelvis found groundglass opacities in the bilateral lung bases. Mild interlobular septal thickening. Cardiac enlargement. Correlate for mild CHF or volume overload. Mild pericardial effusion. [place] kidneys are atrophic and do not demonstrate dynamic contrast enhancement. On precontrast images there is already contrast enhancement of the kidneys. There is mild pelvicaliectasis of the left lower quadrant transplant kidney. No obstructing process is seen. Mild urinary bladder wall thickening may be due to cystitis or chronic bladder outlet obstruction. Throughout the day patient was verbally abusive to nursing staff and came out in the halls looking for food refusing to wear a mask. Use profanity asked nursing staff to take out his IV and let him walk home where he lives across the street AGAINST MEDICAL ADVICE. Problem list: Hematuria - painless, new. Possibly cocaine induced AIN. Repeat CT for assessment of renal source. Antibiotics given for likely UTI HyperKalemia - with EKG no changes. Needs dialysis HTN urgency - Restart home meds. avoid cocaine, cont home meds needs outpatient follow up for outpatient echo. ESRD - TTS; has been on dialysis since May 2020 after failed renal transplant Failed Renal Transplant - no longer on immunosuppressants Hx of Seizures - not having seizures Elevated troponin - likely due to demand ischemia. trended down Systolic heart murmur - will obtain echo outpatient, patient wishes not to have further workup inpatient Cocaine positive UDS - patient denies, states he only smokes and smokes marijuana. Carvedilol and cocaine use disorder have been shown to be safe and will continue carvedilol PVD s/p L great toe amputation s/p colostomy Smoker - counseled on cessation Greater than 72 minutes spent in same day admit and d/c Discharge Information Condition at Discharge: Comment (AMA) Disposition/Orders: D/C to Home Scheduled Amlodipine Besylate (Amlodipine Besylate) 10 Mg Tablet, 10 MG PO DAILY for hypertension for 30 Days, #30 Ref 5 Prescribed by: GINA BRASWELL MD on 01/18/21 1020 Last Action: Continued on 02/01/21 1036 by GINA BRASWELL MD Apixaban (Eliquis) 2.5 Mg Tablet, 1 TAB PO DAILY for Afib for 30 Days, #30 Ref 2 Prescribed by: GINA BRASWELL MD on 01/18/21 1020 Carvedilol (Carvedilol ) 12.5 Mg Tablet, 12.5 MG PO BIDWMEALS for CHF for 30 Days, #60 Ref 5 Prescribed by: GINA BRASWELL MD on 01/18/21 1020 Last Action: Continued on 02/01/21 1036 by GINA BRASWELL MD Hydralazine Hcl (Hydralazine Hcl) 100 Mg Tablet, 1 TAB PO TID for hypertension for 30 Days, #90 Ref 5 Prescribed by: GINA BRASWELL MD on 01/18/21 1020 Last Action: Converted on 02/01/21 1036 by GINA BRASWELL MD Sevelamer Carbonate (Renvela) 800 Mg Tablet, 1 TAB PO TID for ESRD for 30 Days, #90 Ref 0 Prescribed by: GINA BRASWELL MD on 01/18/21 1020 Last Action: Continued on 02/01/21 1036 by GINA BRASWELL MD Justicifation of Admission Dx: Justifications for Admission: Justification of Admission Dx: N/A GINA BRASWELL MD Feb 02, 2021 08:20
== END 2021-02-01 16:25 | disposition left against medical advice (07) | DRG 690 ==
LOC: ER 18:40 → 2 SOUTH 02-01 01:10
PROVIDERS: ADMIT Family Medicine; ATTEND Family Medicine
PROC: 5A1D70Z Performance of Urinary Filtration, Intermittent, Less than 6 Hours Per Day (ICD-10-PCS; principal; 2021-02-01)
DX: N10 Acute pyelonephritis (principal); I13.2 Hypertensive heart and chronic kidney disease with heart failure and with stage 5 chronic kidney disease, or end stage renal disease; I24.8 Other forms of acute ischemic heart disease; N39.0 Urinary tract infection, site not specified; D64.9 Anemia, unspecified; N18.6 End stage renal disease; E87.5 Hyperkalemia; F17.210 Nicotine dependence, cigarettes, uncomplicated; I48.91 Unspecified atrial fibrillation; I50.9 Heart failure, unspecified; I73.9 Peripheral vascular disease, unspecified; Z79.01 Long term (current) use of anticoagulants; Z79.899 Other long term (current) drug therapy; Z82.49 Family history of ischemic heart disease and other diseases of the circulatory system; Z89.412 Acquired absence of left great toe; Z90.49 Acquired absence of other specified parts of digestive tract; Z91.14 Patient's other noncompliance with medication regimen; Z93.3 Colostomy status; Z99.2 Dependence on renal dialysis; E21.3 Hyperparathyroidism, unspecified; I16.0 Hypertensive urgency; F19.90 Other psychoactive substance use, unspecified, uncomplicated; K62.82 Dysplasia of anus; Z53.29 Procedure and treatment not carried out because of patient's decision for other reasons; R31.9 Hematuria, unspecified
CPT/HCPCS: 36415; 71045; 74178; 80053; 80307; 81001; 83735; 84484; 85025; 87086; 96374; J0360; J0696; Q9967; 99285-25; G0378